=== PATIENT | male | born 1960 | race Caucasian/White ===

== ENCOUNTER 2020-05-11 08:41 | Day surgery (SDC) | payer OTHER ==
[~2020-05-11] VITALS: Ht 182.9 cm; Wt 98.5 kg
[~2020-05-11 08:41] MED LIST: ATOR20 PO; LISI20 PO
--- NOTE | 2020-05-11 10:52 | NUR ---
05/11/20 1052 Elayne Cleary History, Chart, Medications and Allergies reviewed before start of procedure. 3-LEAD EKG REVIEWED WITH PHYSICIAN PRIOR TO START OF PROCEDURE. MONITOR INTACT WITH CONTINUOUS PULSE OXIMETRY AND INTERMITTENT BP. O2 VIA N/C INTACT THROUGHOUT SEDATION/PROCEDURE. MOD SEDATION FOR SLEEP APNEA.
--- NOTE | 2020-05-11 11:52 | NUR ---
Patient States Post-Procedure ride home has been arranged. Discharge instructions reviewed with patient. Patient verbalizes understanding. Copy given to patient to take home. Discharged via wheelchair to private car for ride home.
== END 2020-05-11 11:50 | disposition home or self-care (01) ==
LOC: ORSCMMR 08:41 → ORD 09:30 → ORSCMMR 11:50
PROVIDERS: Internal Medicine Gastroenterology
PROC: 0DBN8ZX Excision of Sigmoid Colon, Via Natural or Artificial Opening Endoscopic, Diagnostic (ICD-10-PCS; principal; 2020-05-11 09:30)
DX: K62.5 Hemorrhage of anus and rectum (principal); Z86.010 Personal history of colon polyps; K63.5 Polyp of colon; G47.30 Sleep apnea, unspecified; I10 Essential (primary) hypertension; E78.00 Pure hypercholesterolemia, unspecified; Z79.899 Other long term (current) drug therapy
CPT/HCPCS: 88305; J2250; J3010; J7120